=== PATIENT | male | born 1970 | race Caucasian/White ===

== ENCOUNTER 2020-05-20 14:00 | Emergency (ER) | payer OTHER ==
[~2020-05-20] VITALS: Ht 188 cm; Wt 77.2 kg
[2020-05-20 14:41] LABS: BASO % 1 % (0-3); EOS % 0 % (0-3); HEMATOCRIT 34.5 % (39.0-53.0); HEMOGLOBIN 11.9 g/dL (13.0-17.5); LYMPH # 1.4 x10^3/uL (1.0-4.8); LYMPH % 23 % (24-48); MEAN CORPUSCULAR HEMOGLOBIN 33 pg (25-35); MEAN CORPUSCULAR HGB CONC 34 g/dL (31-37); MEAN CORPUSCULAR VOLUME 96 fL (79-100); MONO # 0.4 x10^3/uL (0.0-1.1); MONO % 7 % (0-9); NEUT # 4.3 x10^3/uL (1.8-7.7); NEUT % 70 % (31-73); PLATELET COUNT 148 x10^3/uL (140-400); RED CELL DISTRIBUTION WIDTH 13.5 % (11.5-14.5); WHITE BLOOD COUNT 6.2 x10^3/uL (4.0-11.0)
--- NOTE | 2020-05-20 14:51 | RAD ---
XR CHEST 1V History: Reason: syncope / Spl. Instructions: / History: Comparison: None. Findings: No consolidation or pleural effusion. Normal heart size. No pneumothorax. Spinal stimulator leads not ed. Impression: 1. No acute cardiopulmonary process. Electronically signed by: Justyn Babin DO (05/20/2020 2:49 PM) [id number]
[2020-05-20 14:52] LABS: CALCIUM 8.1 mg/dL (8.5-10.1); GFR 79.8; POTASSIUM 4.3 mmol/L (3.5-5.1)
[2020-05-20 14:58] LABS: ALBUMIN 3.5 g/dL (3.4-5.0); ALBUMIN/GLOBULIN RATIO 1.3 (1.0-1.7); MAGNESIUM 1.9 mg/dL (1.8-2.4); TOTAL BILIRUBIN 0.4 mg/dL (0.2-1.0); TOTAL PROTEIN 6.2 g/dL (6.4-8.2)
--- NOTE | 2020-05-20 15:22 | RAD ---
CT MAXILLOFACIAL WITHOUT CONTRAST, CT HEAD AND C-SPINE WO Date: 05/20/2020 2:21 PM Clinical Indication: syncope, fall, injury, pain Comparison: None. Technique: 5 mm axial tomographic images were obtained of the head without contrast. These were view ed on brain and bone windows. Axial helical images of the face were obtained without contrast. Axial and coronal reconstruction was performed. CT imaging of the cervical spine was performed without cont rast. Coronal and sagittal reformatted images were performed. One or more of the following dose reduc tion techniques were utilized: Automated exposure control (AEC), Adjustment of mA and/or kV according to patient size, Use of iterative reconstruction technique such as ASiR, CT scan done according to A EDGAR and image gently/image wisely CT HEAD FINDINGS: The brain parenchyma is normal in attenuation. No intra- or extra-axial mass or fluid collection. No acute hemorrhage. The ventricles are normal in size, shape, and morphology. The hunt-white matter melida ction is normal. The basilar cisterns are patent. The mastoid air cells are clear. No aggressive osseous lesion or fracture. CT FACE FINDINGS: There is no acute facial bone fracture. The paranasal sinuses are clear. The orbits are normal. The globes are intact. The nasal septum is de viated to the right anteriorly and to the left posteriorly. CT CERVICAL SPINE FINDINGS: The cervical spine is normally aligned. No acute fracture. No aggressive lytic or blastic osseous les ion. Mild multilevel degenerative disc height loss. No high-grade spinal canal stenosis or neural foramina l narrowing. The thyroid gland is normal. No cervical lymphadenopathy. The visualized aerodigestive tract is unrem arkable. The visualized lung apices are clear. Impression: 1. No acute intracranial process. Frontal scalp swelling. 2. No acute facial bone fracture. 3. No acute osseous abnormality of the cervical spine. Electronically signed by: Iván Taylor MD (05/20/2020 3:20 PM) [id number]
--- NOTE | 2020-05-20 15:30 | RAD ---
CT THORACIC SPINE WO 05/20/2020 2:21 PM Indication: Pain, syncope, fall, injury Comparison: None. Technique: CT imaging of the thoracic spine was performed without contrast. Coronal and sagittal ref ormatted images were performed. One or more of the following dose reduction techniques were utilized: Automated exposure control (AEC), Adjustment of mA and/or kV according to patient size, Use of itera tive reconstruction technique such as ASiR, CT scan done according to ALARA and image gently/image wi sely. Findings: The thoracic spine is normally aligned. No acute fracture. Vertebral body heights are maintained with out compression deformity. Multilevel degenerative disc height loss. No aggressive lytic or blastic o sseous lesion. No high-grade spinal canal stenosis or neural foraminal narrowing. The visualized lungs are clear. No pleural effusion. The visualized thoracic aorta is normal caliber. Impression: No acute osseous abnormality of the thoracic spine. Electronically signed by: Iván Taylor MD (05/20/2020 3:28 PM) [id number]
--- NOTE | 2020-05-20 15:30 | RAD ---
CT LUMBAR SPINE WO Date: 05/20/2020 2:21 PM Indication: Pain, syncope, fall, injury / Spl. Instructions: / History: Comparison: None. Technique: Helical CT images of the lumbar spine were obtained without contrast. Coronal and sagitta l reformatted images were also performed. One or more of the following dose reduction techniques were utilized: Automated exposure control (AEC), Adjustment of mA and/or kV according to patient size, Us e of iterative reconstruction technique such as ASiR, CT scan done according to ALARA and image gentl y/image wisely. Findings: Postsurgical changes of posterior decompression and posterior instrumentation at L3-S1, with interbod y spacers at L3-4, L4-5, and L5-S1. The lumbar spine is normally aligned. No acute fracture. Vertebral body heights are maintained withou t compression deformity. Multilevel degenerative disc disease, worst and severe at L2-3. No high grade spinal canal stenosis or neuroforaminal narrowing. No soft tissue abnormality within the visualized abdomen or pelvis. The visualized abdominal aorta is normal caliber. Spinal stimulator device. IMPRESSION: No acute osseous abnormality of the lumbar spine. Electronically signed by: Iván Taylor MD (05/20/2020 3:27 PM) [id number]
[2020-05-20] MEDS: LIDOCAINE/EPI/TETRACAINE TOPICAL GEL 3 ML. TP ONE (15:32)
[2020-05-20] MEDS: IV NORMAL SALINE 1000ML BAG 1,000 ML IV ONE (15:32)
[2020-05-20] MEDS: LIDOCAINE WITH 8.4% SOD BICARB 3 ML DISP.SYRIN. INJ ONE (15:33)
[2020-05-20] MEDS: DIPH,PERTUSS(ACELL),TET VAC/PF 0.5 ML SYRINGE. VAX IM ONE (15:53)
[2020-05-20 15:54] LABS: BILIRUBIN,URINE NEGATIVE (NEG); CLARITY,URINE CLEAR; COLOR,URINE YELLOW; NITRITE,URINE NEGATIVE (NEG); PROTEIN,URINE NEGATIVE (NEG-TRACE); UROBILINOGEN,URINE 0.2 mg/dL (0.2 mg/dL)
[2020-05-20 16:07] LABS: AMPHETAMINE/METHAMPHETAMINE NEG (NEG); BARBITURATES NEG (NEG); BENZODIAZEPINES NEG (NEG); CANNABINOIDS NEG (NEG); COCAINE NEG (NEG); METHADONE NEG (NEG); OPIATES NEG (NEG); PHENCYCLIDINE NEG (NEG)
[2020-05-20 16:16] LABS: HYALINE CASTS, URINE FEW /HPF
[2020-05-20 16:18] LABS: AMORPHOUS SEDIMENT,UR PRESENT /HPF; BACTERIA,URINE FEW /HPF (0-FEW); RBC,URINE OCC /HPF (0-2)
--- NOTE | 2020-05-20 18:05 | PHYS DOC ---
Past Medical History Past Medical History: No Pertinent History Past Surgical History: Lumbar Laminectomy Smoking Status: Current Every Day Smoker Alcohol Use: Occasionally General Adult EDM: Chief Complaint: SYNCOPE HPI: HPI: Patient is a 49 year old male who presents to the ED today from [facility] after experiencing a syncope episode. Patient states he was doing his normal job putting the CTA and abdomen when he suddenly passed out. Patient hit his head on the ground. Patient states he has had another syncope episode last year around July. He states they could not find any reason for the other syncope episode either. Review of Systems: Review of Systems: Constitutional: Denies fever or chills. [] Eyes: Denies change in visual acuity. [] HENT: Denies nasal congestion or sore throat. [] Respiratory: Denies cough or shortness of breath. [] Cardiovascular: Denies chest pain or edema. [] GI: Denies abdominal pain, nausea, vomiting, bloody stools or diarrhea. [] : Denies dysuria. [] Musculoskeletal: Denies back pain or joint pain. [] Integument: Laceration to the forehead Neurologic: Reports syncope episode denies headache, focal weakness or sensory changes. [] Psychiatric: Denies depression or anxiety. [] Heart Score: C/O Chest Pain: N/A Risk Factors: Risk Factors: DM, Current or recent (<one month) smoker, HTN, HLP, family history of CAD, obesity. Risk Scores: Score 0 - 3: 2.5% MACE over next 6 weeks - Discharge Home Score 4 - 6: 20.3% MACE over next 6 weeks - Admit for Clinical Observation Score 7 - 10: 72.7% MACE over next 6 weeks - Early Invasive Strategies Current Medications: Current Medications Medications (Trade) Dose Ordered Sig/Kylah Start Time Stop Time Status Last Admin Dose Admin Diphtheria/ Tetanus/Acell Pertussis (ADACEL TDap SYRINGE) 0.5 ml ONCE ONCE 05/20/20 15:45 05/20/20 15:46 DC 05/20/20 15:53 0.5 ML Lidocaine HCl (Buffered Lidocaine 1%) 3 ml 1X ONCE 05/20/20 14:15 05/20/20 14:52 DC 05/20/20 15:33 3 ML Sodium Chloride 1,000 ml @ 1,000 mls/hr 1X ONCE 4/15/21 14:15 05/20/20 15:14 DC 05/20/20 15:32 1,000 MLS/HR Tetracaine/ Epinephrine/ Lidocaine (Let (Mjfo-Wizipcn-Jshkw) Gel) 3 ml 1X ONCE 05/20/20 14:15 05/20/20 14:52 DC 05/20/20 15:32 3 ML Allergies: Allergies: Allergies Coded Allergies Type Severity Reaction Last Updated Verified lisinopril Allergy Severe 05/20/20 Yes famotidine Adverse Reaction Intermediate Nausea 05/20/20 Yes Physical Exam: PE: Constitutional: Well developed, well nourished, no acute distress, non-toxic appearance. [] HENT: Normocephalic, atraumatic, bilateral external ears normal, oropharynx moist, no oral exudates, nose normal. [] Eyes: PERRLA, EOMI, conjunctiva normal, no discharge. [] Neck: Normal range of motion, diffuse paraspinal muscle tenderness posterior cervical spine, no midline cervical spine tenderness, supple, no stridor. [] Cardiovascular:Heart rate regular rhythm, no murmur [] Lungs & Thorax: Bilateral breath sounds clear to auscultation [] Abdomen: Bowel sounds normal, soft, no tenderness, no masses, no pulsatile masses. [] Skin: Forehead with a laceration approximately 2 cm long Back: Diffuse paraspinal muscle tenderness to thoracic and lumbar spine includ ing some midline tenderness to thoracic and lumbar spine, no CVA tenderness. [] Extremities: No tenderness, no cyanosis, no clubbing, ROM intact, no edema. [] Neurologic: Alert and oriented X 3, normal motor function, normal sensory function, no focal deficits noted. Cranial nerves II-XII intact Psychologic: Affect normal, judgement normal, mood normal. [] Current Patient Data: Labs: Laboratory Tests Test 05/20/20 14:10 05/20/20 15:38 05/20/20 16:53 White Blood Count 6.2 x10^3/uL (4.0-11.0) Red Blood Count 3.60 x10^6/uL (4.30-5.70) L Hemoglobin 11.9 g/dL (13.0-17.5) L Hematocrit 34.5 % (39.0-53.0) L Mean Corpuscular Volume 96 fL (79-100) Mean Corpuscular Hemoglobin 33 pg (25-35) Mean Corpuscular Hemoglobin Concent 34 g/dL (31-37) Red Cell Distribution Width 13.5 % (11.5-14.5) Platelet Count 148 x10^3/uL (140-400) Neutrophils (%) (Auto) 70 % (31-73) Lymphocytes (%) (Auto) 23 % (24-48) L Monocytes (%) (Auto) 7 % (0-9) Eosinophils (%) (Auto) 0 % (0-3) Basophils (%) (Auto) 1 % (0-3) Neutrophils # (Auto) 4.3 x10^3/uL (1.8-7.7) Lymphocytes # (Auto) 1.4 x10^3/uL (1.0-4.8) Monocytes # (Auto) 0.4 x10^3/uL (0.0-1.1) Eosinophils # (Auto) 0.0 x10^3/uL (0.0-0.7) Basophils # (Auto) 0.0 x10^3/uL (0.0-0.2) Sodium Level 139 mmol/L (136-145) Potassium Level 4.3 mmol/L (3.5-5.1) Chloride Level 106 mmol/L (98-107) Carbon Dioxide Level 28 mmol/L (21-32) Anion Gap 5 (6-14) L Blood Urea Nitrogen 13 mg/dL (8-26) Creatinine 1.0 mg/dL (0.7-1.3) Estimated GFR (Cockcroft-Gault) 79.8 BUN/Creatinine Ratio 13 (6-20) Glucose Level 89 mg/dL (70-99) Lactic Acid Level 1.4 mmol/L (0.4-2.0) Calcium Level 8.1 mg/dL (8.5-10.1) L Magnesium Level 1.9 mg/dL (1.8-2.4) Total Bilirubin 0.4 mg/dL (0.2-1.0) Aspartate Amino Transferase (AST) 95 U/L (15-37) H Alanine Aminotransferase (ALT) 55 U/L (16-63) Alkaline Phosphatase 62 U/L (46-116) Troponin I Quantitative < 0.017 ng/mL (0.000-0.055) 0.023 ng/mL (0.000-0.055) KQ-Rls-L-Type Natriuretic Peptide 47 pg/mL (0-124) Total Protein 6.2 g/dL (6.4-8.2) L Albumin 3.5 g/dL (3.4-5.0) Albumin/Globulin Ratio 1.3 (1.0-1.7) Thyroid Stimulating Hormone (TSH) 1.702 uIU/mL (0.358-3.74) Urine Collection Type Unknown Urine Color Yellow Urine Clarity Clear Urine pH 6.0 (<5.0-8.0) Urine Specific [place] 1.015 (1.000-1.030) Urine Protein Negative mg/dL (NEG-TRACE) Urine Glucose (UA) Negative mg/dL (NEG) Urine Ketones (Stick) Negative mg/dL (NEG) Urine Blood Negative (NEG) Urine Nitrite Negative (NEG) Urine Bilirubin Negative (NEG) Urine Urobilinogen Dipstick 0.2 mg/dL (0.2 mg/dL) Urine Leukocyte Esterase Negative (NEG) Urine RBC Occ /HPF (0-2) Urine WBC 1-4 /HPF (0-4) Urine Squamous Epithelial Cells Occ /LPF Urine Amorphous Sediment Present /HPF Urine Bacteria Few /HPF (0-FEW) Urine Hyaline Casts Few /HPF Urine Mucus Mod /LPF Urine Opiates Screen Neg (NEG) Urine Methadone Screen Neg (NEG) Urine Barbiturates Neg (NEG) Urine Phencyclidine Screen Neg (NEG) Urine Amphetamine/Methamphetamine Neg (NEG) Urine Benzodiazepines Screen Neg (NEG) Urine Cocaine Screen Neg (NEG) Urine Cannabinoids Screen Neg (NEG) Urine Ethyl Alcohol Neg (NEG) Laboratory Tests 05/20/20 14:10 Laboratory Tests 05/20/20 14:10 Vital Signs: Vital Signs Date Time Temp Pulse Resp B/P (MAP) Pulse Ox O2 Delivery O2 Flow Rate FiO2 05/20/20 14:00 99.6 78 18 126/70 (88) 96 Room Air 99.6 EKG: EK interpreted by Dr. Keane sinus rhythm heart rate 76 no STEMI [] Radiology/Procedures: Radiology/Procedures: []PROCEDURE: CT HEAD AND CERVICAL SPINE WO CT MAXILLOFACIAL WITHOUT CONTRAST, CT HEAD AND C-SPINE WO Date: 05/20/2020 2:21 PM Clinical Indication: syncope, fall, injury, pain Comparison: None. Technique: 5 mm axial tomographic images were obtained of the head without contrast. These were viewed on brain and bone windows. Axial helical images of the face were obtained without contrast. Axial and coronal reconstruction was performed. CT imaging of the cervical spine was performed without contrast. Coronal and sagittal reformatted images were performed. One or more of the following dose reduction techniques were utilized: Automated exposure control (AEC), Adjustment of mA and/or kV according to patient size, Use of iterative reconstruction technique such as ASiR, CT scan done according to ALARA and image gently/image wisely CT HEAD FINDINGS: The brain parenchyma is normal in attenuation. No intra- or extra-axial mass or fluid collection. No acute hemorrhage. The ventricles are normal in size, shape, and morphology. The hunt-white matter junction is normal. The basilar cisterns are patent. The mastoid air cells are clear. No aggressive osseous lesion or fracture. CT FACE FINDINGS: There is no acute facial bone fracture. The paranasal sinuses are clear. The orbits are normal. The globes are intact. The nasal septum is deviated to the right anteriorly and to the left posteriorly. CT CERVICAL SPINE FINDINGS: The cervical spine is normally aligned. No acute fracture. No aggressive lytic or blastic osseous lesion. Mild multilevel degenerative disc height loss. No high-grade spinal canal stenosis or neural foraminal narrowing. The thyroid gland is normal. No cervical lymphadenopathy. The visualized aerodigestive tract is unremarkable. The visualized lung apices are clear. Impression: 1. No acute intracranial process. Frontal scalp swelling. 2. No acute facial bone fracture. 3. No acute osseous abnormality of the cervical spine. Electronically signed by: Tiffanie Taylor MD (05/20/2020 3:20 PM) [id number] DICTATED and SIGNED BY: TIFFANIE TAYLOR MD DATE: 05/20/20 [id number] 0 PROCEDURE: PORTABLE CHEST 1V XR CHEST 1V History: Reason: syncope / Spl. Instructions: / History: Comparison: None. Findings: No consolidation or pleural effusion. Normal heart size. No pneumothorax. Spinal stimulator leads noted. Impression: 1. No acute cardiopulmonary process. Electronically signed by: Justyn Cifuentes DO (05/20/2020 2:49 PM) [id number] DICTATED and SIGNED BY: JUSTYN CIFUENTES DO DATE: 05/20/20 [id number] PROCEDURE: CT LUMBAR SPINE WO CONTRAST CT LUMBAR SPINE WO Date: 05/20/2020 2:21 PM Indication: Pain, syncope, fall, injury / Spl. Instructions: / History: Comparison: None. Technique: Helical CT images of the lumbar spine were obtained without contrast. Coronal and sagittal reformatted images were also performed. One or more of the following dose reduction techniques were utilized: Automated exposure control (AEC), Adjustment of mA and/or kV according to patient size, Use of iterative reconstruction technique such as ASiR, CT scan done according to ALARA and image gently/image wisely. Findings: Postsurgical changes of posterior decompression and posterior instrumentation at L3-S1, with interbody spacers at L3-4, L4-5, and L5-S1. The lumbar spine is normally aligned. No acute fracture. Vertebral body heights are maintained without compression deformity. Multilevel degenerative disc disease, worst and severe at L2-3. No high grade spinal canal stenosis or neuroforaminal narrowing. No soft tissue abnormality within the visualized abdomen or pelvis. The visual ized abdominal aorta is normal caliber. Spinal stimulator device. IMPRESSION: No acute osseous abnormality of the lumbar spine. Electronically signed by: Tiffanie Taylor MD (05/20/2020 3:27 PM) [id number] DICTATED and SIGNED BY: TIFFANIE TAYLOR MD DATE: 05/20/20 [id number] 0 Laceration/Wound Repair Laceration/Wound Repair : [] Wound Location: Forehead laceration Wound's Depth, Shape: Horizontal Wound Length (cm): Approximately 2 cm Wound Explored: clean Irrigated w/ Saline (ccs): 10 Betadine Prep?: Yes Anesthesia: Let solution 2 mL then later on buffered lidocaine 1 mL Wound Repaired With: Absorbable gut Suture Size/Type: 5.0/interrupted sutures Number of Sutures: 4 Progress :[] Wound was left open to air Course & Med Decision Making: Course & Med Decision Making Pertinent Labs and Imaging studies reviewed. (See chart for details) This is a 49-year-old male patient presented to the ED today to be evaluated after having a syncope episode at [facility] where he is employed. Patient reports having a similar episode [address] of the head, neck, thoracic and lumbar spine negative for any acute findings, CT of maxillofacial was also negative for any acute findings, chest x-ray is negative. EKG is negative, troponin is normal, CBC with a normal WBC, hemoglobin 11.9, hematocrit 34.5, patient states he does not know his baseline hemoglobin but has no awareness of anemia, he states he does not have any bloody stools or hematemesis but promised to follow-up with his own PCP for this. He had a laceration on the forehead which was closed. He refused admission. Tetanus is updated. Dragon Disclaimer: Dragon Disclaimer: This electronic medical record was generated, in whole or in part, using a voice recognition dictation system. Departure Departure Impression: Primary Impression: Syncope Qualified Codes: R55 - Syncope and collapse Additional Impressions: Anemia Qualified Codes: D64.9 - Anemia, unspecified Forehead laceration Qualified Codes: S01.81XA - Laceration without foreign body of other part of head, initial encounter Low back pain Qualified Codes: M54.5 - Low back pain Disposition: 01 HOME / SELF CARE / HOMELESS Condition: STABLE Referrals: NO PCP (PCP) Follow-up with your primary care doctor and the provided ED SUÁREZ MD Follow-up in 1 week Patient Instructions: Anemia, FAQs, Back Pain, Adult, [id number] Additional Instructions: You were evaluated in the emergency room after having a syncope episode, your CT of the head, face, neck, mid and low back are negative for any acute findings. Your chest x-ray is negative, your lab work showed you are slightly anemic. Consider following up with a primary care doctor as well as a water rights specialist to make sure you do not have any internal gastrointestinal bleeding. IWONA ART APRN May 20, 2020 18:05
[2020-05-20 18:30] VITALS: BP 117/67
== END 2020-05-20 18:45 | disposition home or self-care (01) ==
LOC: ER 14:00
DX: S01.82XA Laceration with foreign body of other part of head, initial encounter (principal); M54.5 Low back pain; D64.9 Anemia, unspecified; R55 Syncope and collapse; F17.200 Nicotine dependence, unspecified, uncomplicated; Z90.89 Acquired absence of other organs; Z98.890 Other specified postprocedural states; Z88.8 Allergy status to other drugs, medicaments and biological substances; Y29.XXXA Contact with blunt object, undetermined intent, initial encounter; Y93.89 Activity, other specified; Y92.89 Other specified places as the place of occurrence of the external cause; Y99.8 Other external cause status
CPT/HCPCS: 12011; 36415; 70450; 70486; 71045; 72125; 72128; 72131; 80053; 80307; 81001; 83605; 83735; 83880; 84443; 84484; 85025; 90471; 90715; 93005; 96360; 99285; J3490; J7030